=== PATIENT | female | born 1955 | race Two or more races ===

== ENCOUNTER 2020-04-18 06:09 | Day surgery (SDC) | payer OTHER ==
[~2020-04-18 06:09] MED LIST: PLAVIX75 MG PO; RYTHMOL SR225 MG PO
== END 2020-04-18 12:15 | disposition home or self-care (01) ==
LOC: CIR.AMB 06:09 → ADM 12:45 → CIR.AMB 12:45
PROVIDERS: ATTEND Surgery
DX: C50.411 Malignant neoplasm of upper-outer quadrant of right female breast (principal)
CPT/HCPCS: 36561; C1751